=== PATIENT | male | born 2000 | race Two or more races ===

== ENCOUNTER 2021-07-26 19:01 | Emergency (ER) | payer SELFPAY ==
[~2021-07-26] VITALS: Ht 167.6 cm; Wt 59.0 kg
[2021-07-26 22:40] VITALS: BP 135/78
[2021-07-26] MEDS: ACETAMINOPHEN WITH CODEINE 300/30MG TABLET PO ONE (22:40)
[2021-07-26] MEDS: METHOCARBAMOL 500MG TABLET PO ONE (22:40)
[2021-07-27] MEDS ORDERED: NAPR-681 MT (00:06)
[2021-07-27] MEDS ORDERED: METH500T6 MT (00:06)
== END 2021-07-27 00:30 | disposition home or self-care (01) ==
LOC: ER 19:01
DX: S16.1XXA Strain of muscle, fascia and tendon at neck level, initial encounter (principal); S39.012A Strain of muscle, fascia and tendon of lower back, initial encounter; V49.9XXA Car occupant (driver) (passenger) injured in unspecified traffic accident, initial encounter; Y93.89 Activity, other specified; Y92.89 Other specified places as the place of occurrence of the external cause; Y99.8 Other external cause status
CPT/HCPCS: 73130; 73562; 99284